=== PATIENT | male | born 1995 | race Caucasian/White ===

== ENCOUNTER 2022-08-05 06:07 | Day surgery (SDC) | payer OTHER ==
[~2022-08-05] VITALS: Ht 172.7 cm; Wt 75.6 kg
[~2022-08-05 06:07] MED LIST: MAGIC MOUTHWASH
--- NOTE | 2022-08-05 09:07 | NUR ---
08/05/22 0907 Kristine De La Garza PATIENT STATES SORENESS IN THROAT 2-11/01 BUT IT IS "NOT PAINFUL" AND STATES "TOLERABLE".
== END 2022-08-05 09:07 | disposition home or self-care (01) ==
LOC: ORSCSDS 06:07
PROVIDERS: Otolaryngology
PROC: 0CBPXZZ Excision of Tonsils, External Approach (ICD-10-PCS; principal; 2022-08-05 07:30)
DX: J35.01 Chronic tonsillitis (principal)
CPT/HCPCS: 88304; A9270; J1100; J2250; J2405; J2704; J3010